=== PATIENT | female | born 1995 | race American Indian/Alaskan Native ===

== ENCOUNTER 2019-12-19 10:33 | Emergency (ER) | payer SELFPAY ==
[2019-12-19 10:43] VITALS: BP 135/71
--- NOTE | 2019-12-19 12:36 | Emergency Department Report ---
ED HPI - General Chief complaint: Vaginal Bleeding Stated complaint: ABD PAIN Time Seen by Provider: 12/19/19 11:16 Source: patient Mode of arrival: Ambulatory Limitations: No Limitations - History of Present Illness Initial comments: 24-year-old -[place] female presents to the emergency room stating she is having vaginal bleeding for the last 4 days. Patient states that she had heavy bleeding yesterday and went through 4 pads and today she is gone through 2 pads so far. Patient states that she went to an clinic today had an ultrasound and was told that she was having a miscarriage and to follow-up with an [facility] provider. Patient reports her last menstrual cycle was 09/08/2019. She reports November 24 she had a normal ultrasound done at the same clinic. Patient states that she is 2 para 0 with 1 . Patient does report some mild abdominal cramping. She does report having clots with patient reports she went to a [facility] vaginal bleeding. MD Complaint: vaginal discharge Onset/Timin -: days(s) Location: pelvis Severity scale (0 -10): 4 Quality: cramping Consistency: intermittent Improves with: none Worsens with: none Associated symptoms: vaginal bleeding, abdominal pain. denies: vaginal discharge, headache, vision changes, malaise, dysparuenia, shortness of breath, weakness Vaginal bleeding: heavy, clots :: Yes Last menstrual period: 09/08/19 Pre- care: none, previous ultrasound confi - Related Data : 2 Para: 0 Ab: 1 Allergies Allergy/AdvReac Type Severity Reaction Status Date / Time No Known Allergies Allergy Unverified 12/19/19 13:27 ED Review of Systems ROS: Stated complaint: ABD PAIN Other details as noted in HPI Comment: All other systems reviewed and negative ED Past Medical Hx - Past Medical History Previous Medical History?: No - Surgical History Additional Surgical History: lump removed from R breast - Social History Smoking Status: Never Smoker Substance Use Type: None ED Physical Exam - General Limitations: No Limitations General appearance: alert, in no apparent distress - Head Head exam: Present: atraumatic, normocephalic - Eye Eye exam: Present: normal appearance - ENT ENT exam: Present: mucous membranes moist - Neck Neck exam: Present: normal inspection - Respiratory Respiratory exam: Present: normal lung sounds bilaterally. Absent: respiratory distress - Cardiovascular Cardiovascular Exam: Present: regular rate, normal rhythm. Absent: systolic murmur, diastolic murmur, rubs, gallop - GI/Abdominal GI/Abdominal exam: Present: soft, normal bowel sounds - Extremities Exam Extremities exam: Present: normal inspection - Back Exam Back exam: Present: normal inspection - Neurological Exam Neurological exam: Present: alert, oriented X3 - Psychiatric Psychiatric exam: Present: normal affect, normal mood - Skin Skin exam: Present: warm, dry, intact, normal color. Absent: rash ED Course Vital Signs 12/19/19 10:41 Temperature 98.9 F Pulse Rate 82 Respiratory 16 Rate Blood Pressure 135/71 O2 Sat by Pulse 100 Oximetry ED Medical Decision Making - Lab Data Result diagrams: 12/19/19 12:30 - Radiology Data Radiology results: report reviewed Print Report Referring Physician:PRAMOD RAMIREZPatient Name:GERARD HANNAHPatient ID:[id number] of :[id number]:FemaleAccession:[id number] Date:[id number] Status:Finalized Findings [address] [address] Ultrasound Report Signed Patient: GERARD HANNAH MR#: [id number] 129 : 1995 Acct:[id number] Age/Sex: 24 / F ADM Date: 12/19/19 Loc: ED Attending Dr: Ordering Physician: LESLEY COURTNEY Date of Service: 12/19/19 Procedure(s): US OB transvaginal Accession Number(s): [id number] cc: LESLEY COURTNEY US OB <= 14 wk fetus add gest, US OB transvaginal INDICATION / CLINICAL INFORMATION: vag bleeding. COMPARISON: None available. FINDINGS: Uterus measures 7.8 cm with the slightly prominent endometrial stripe measuring 2 cm. No evidence of intrauterine . The right ovary is normal measuring 3.3 x 3.2 cm. There is a 2 cm solid left ovarian mass. The left ovary measures 3.1 x 2.2 cm. No fluid collections are seen in the cul-de-sac. IMPRESSION: 1. No evidence of intrauterine . 2. Solid left ovarian lesion measuring 1.9 cm. Signer Name: Osmany Del Castillo MD Signed: 12/19/2019 4:33 PM Workstation Name: [id number] Transcribed By: ANDREA Dictated By: Osmany Del Castillo MD Electronically Authenticated By: Osmany Del Castillo MD Signed Date/Time: 12/19/191632 DD/ 31 TD/TT: - Medical Decision Making 24-year-old -Mexican female presents to the emergency room stating she is having vaginal bleeding for the last 4 days. Patient states that she had heavy bleeding yesterday and went through 4 pads and today she is gone through 2 pads so far. Patient states that she went to an clinic today had an ultrasound and was told that she was having a miscarriage and to follow-up with an [facility] provider. Patient reports her last menstrual cycle was 09/08/2019. She reports November 24 she had a normal ultrasound done at the same clinic. Patient states that she is 2 para 0 with 1 . Patient does report some mild abdominal cramping. She does report having clots with patient reports she went to a [facility] vaginal bleeding. CBC, hCG quant, urinalysis, type and screen. Critical care attestation.: If time is entered above; I have spent that time in minutes in the direct care of this critically ill patient, excluding procedure time. ED Disposition Clinical Impression: Spontaneous miscarriage Disposition: DC-01 TO HOME OR SELFCARE Is pt being admited?: No Does the pt Need Aspirin: No Condition: Stable Instructions: Spontaneous Miscarriage (ED) Additional Instructions: Ultrasound shows that you have no gestational sac. I recommend for you to follow-up with OB. Tylenol for abdominal pain. Referrals: PRIMARY CARE, [Primary Care Provider] - 3-5 Days [facility] [Provider Group] - 3-5 Days Forms: Work/School Release Form(ED)
[2019-12-19 12:41] LABS: Bilirubin,Urine NEG (Negative); Blood,Urine MOD (Negative); Color,Urine Yellow (Yellow); Mucus,Urine FEW /HPF; Protein,Urine <15 mg/dL mg/dL (Negative); Urobilinogen,Urine < 2.0 mg/dL (<2.0)
[2019-12-19 13:23] LABS: Basophils % (Auto) 0.9 % (0.0-1.8); Eosinophils # (Auto) 0.1 K/mm3 (0.0-0.4); Eosinophils % (Auto) 1.7 % (0.0-4.3); Hematocrit 32.7 % (30.3-42.9); Hemoglobin 10.3 gm/dl (10.1-14.3); Lymphocytes # (Auto) 1.5 K/mm3 (1.2-5.4); Lymphocytes % (Auto) 27.6 % (13.4-35.0); Mean Corpuscular HGB Conc 32 % (30-34); Mean Corpuscular Volume 71 fl (79-97); Monocytes # (Auto) 0.4 K/mm3 (0.0-0.8); Monocytes % (Auto) 6.6 % (0.0-7.3); Platelet Count 349 K/mm3 (140-440); Red Blood Count 4.59 M/mm3 (3.65-5.03); Red Cell Distribution Width 19.1 % (13.2-15.2)
[2019-12-19] MEDS ORDERED: ACETAMINOPHEN 325 MG TAB PO ONE (15:50)
--- NOTE | 2019-12-19 16:38 | Ultrasound Report ---
US OB <= 14 wk fetus add gest, US OB transvaginal INDICATION / CLINICAL INFORMATION: vag bleeding. COMPARISON: None available. FINDINGS: Uterus measures 7.8 cm with the slightly prominent endometrial stripe measuring 2 cm. No evidence of intrauterine . The right ovary is normal measuring 3.3 x 3.2 cm. There is a 2 cm solid left ovarian mass. The left ovary measures 3.1 x 2.2 cm. No fluid collections are seen in the cul-de-sac. IMPRESSION: 1. No evidence of intrauterine . 2. Solid left ovarian lesion measuring 1.9 cm. Signer Name: Osmany Del Castillo MD Signed: 12/19/2019 4:33 PM Workstation Name: [id number]
== END 2019-12-19 17:06 | disposition home or self-care (01) ==
LOC: ED 10:33
DX: O03.9 Complete or unspecified spontaneous abortion without complication (principal)
CPT/HCPCS: 36415; 76801; 76802; 76817; 81001; 84702; 85025; 86850; 86900; 86901; 96372